=== PATIENT | male | born 1995 | race African-American/Black ===

== ENCOUNTER → 2017-04-28 | Outpatient (REF) | payer OTHER ==
[2017-05-05 01:08] LABS: DQA1*01:02 Negative (.); DQB1*06:02 Negative (.)
== END ==
LOC: M LAB REF 17:34
PROVIDERS: ATTEND Nurse Practitioner Adult Health
DX: R40.0 Somnolence (principal)

== ENCOUNTER → 2017-10-21 | Outpatient (CLI) | payer OTHER | LOC: M SLEEP 19:52 | DX: G47.419 Narcolepsy without cataplexy (principal) | CPT/HCPCS: 95810 ==